=== PATIENT | male | born 1950 | race American Indian/Alaskan Native ===

== ENCOUNTER 2017-03-29 12:31 | Emergency (ER) | payer MEDICARE, OTHER ==
[2017-03-29 12:38] VITALS: TEMP 97.9
--- NOTE | 2017-03-29 13:54 | RAD ---
PROCEDURE: Left Hip X-ray Radiographs. HISTORY: pain s.p injury, bumped table COMPARISON: None. FINDINGS: BONES: Bone alignment and mineralization are normal. No acute fracture. JOINTS: Normal. SOFT TISSUES: Normal. OTHER FINDINGS: None. IMPRESSION: No acute fracture or dislocation.Please note occult fractures cannot be excluded on plain radiographs. If there is a persistent clinical concern, an MRI of the hip may be performed for further evaluation.
--- NOTE | 2017-03-29 14:08 | C.PDOC ---
History Of Present Illness 66 y/o male presents to the ED for evaluation of left hip pain which began around 2 weeks ago. He describes his symptoms as a mild, aching pain. Patient notes he accidentally bumped into a table around 2 weeks ago and the pain gradually developed afterwards. He states the pain is non-radiating and denies extremity numbness/weakness. Time Seen by Provider: 03/29/17 13:11 Chief Complaint (Nursing): Hip Pain History Per: Patient History/Exam Limitations: no limitations Onset/Duration Of Symptoms: Other (around 2 weeks ) Current Symptoms Are (Timing): Still Present Severity: Mild Additional History Per: Patient Past Medical History Reviewed: Historical Data, Nursing Documentation, Vital Signs Vital Signs: Last Vital Signs Temp 97.9 F 03/29/17 12:36 Pulse 61 03/29/17 14:12 Resp 18 03/29/17 14:12 BP 118/69 03/29/17 14:12 Pulse Ox 98 03/29/17 16:33 - Medical History PMH: Benign Prostatic Hyperplasia Denies: Chronic Kidney Disease Surgical History: No Surg Hx Family History: States: Unknown Family Hx - Social History Hx Tobacco Use: No Hx Alcohol Use: No Hx Substance Use: No - Immunization History Hx Tetanus Toxoid Vaccination: No Hx Influenza Vaccination: No Hx Pneumococcal Vaccination: No Review Of Systems Musculoskeletal: Positive for: Other (+left hip pain. non-radiating ) Neurological: Negative for: Weakness, Numbness Physical Exam - Physical Exam Appears: Non-toxic, No Acute Distress Skin: Warm, Dry, No Rash, No Ecchymosis Head: Atraumatic, Normacephalic Eye(s): bilateral: Normal Inspection Oral Mucosa: Moist Neck: Normal ROM, Supple Chest: Symmetrical Extremity: Normal ROM, Tenderness (minimal to left lateral hip, no swelling or ecchymosis), No Calf Tenderness, No Deformity, No Swelling Neurological/Psych: Oriented x3, Normal Speech, Normal Motor, Normal Sensation Gait: Steady ED Course And Treatment O2 Sat by Pulse Oximetry: 98 (on RA) Pulse Ox Interpretation: Normal - Other Rad left hip XR X-Ray: Interpreted by Me, Viewed By Me, Read By Radiologist Interpretation: Accession No. : [id number]. Patient Name / ID : AIRAM BRIAN / [id number]. Exam Date : 03/29/2017 13:27:05 ( Approved ). Study Comment : Sex / Age : M / [id number]. Creator : BRIGETTE GA MD. Dictator : BRIGETTE GA MD. Human Relations Professor : Burn Nurse : BRIGETTE GA MD. Approver2 : Report Date : 03/29/2017 13:52:53. My Comment : . PROCEDURE: Left Hip X-ray Radiographs. HISTORY: pain s.p injury, bumped table. COMPARISON: None. FINDINGS: BONES: Bone alignment and mineralization are normal. No acute fracture. JOINTS: Normal. SOFT TISSUES: Normal. OTHER FINDINGS: None. IMPRESSION: No acute fracture or dislocation.Please note occult fractures cannot be excluded on plain radiographs. If there is a persistent clinical concern, an MRI of the hip may be performed for further evaluation. Medical Decision Making Medical Decision Making: Impression: 66y/o male with left hip pain Plan: * Motrin PO * left hip XR * reassess and disposition Progress: Left hip XR ordered, results are unremarkable. On reassessment, patient is resting comfortably, showing no signs of distress, and reports an improvement in his pain. Patient is stable for discharge and is advised to orthopedic care for further evaluation if pain persists. Disposition Counseled Patient/Family Regarding: Need For Followup - Disposition Referrals: Valeria Dee APN [Advanced Practice Nurse] - Disposition: HOME/ ROUTINE Disposition Time: 14:07 Condition: STABLE Additional Instructions: Your xray was normal, no fracture. Please apply ice to area 15 minutes three times a day. Take Motrin as needed for pain every 6 hours, with food to not upset stomach. Follow up with orthopedic if pain persists over one week. Prescriptions: Ibuprofen [Motrin] 600 mg PO Q8 #30 tab Instructions: Contusion in Adults (DC) - POA Present On Arrival: None - Clinical Impression Clinical Impression: Contusion of hip - PA / [employer] DISPATCHER / Resident Statement MD/DO has reviewed & agrees with the documentation as recorded. - Scribe Statement The provider has reviewed the documentation as recorded by the Scribe (Cary Escalona) All medical record entries made by the Scribe were at my direction and personally dictated by me. I have reviewed the chart and agree that the record accurately reflects my personal performance of the history, physical exam, medical decision making, and the department course for this patient. I have also personally directed, reviewed, and agree with the discharge instructions and disposition.
[2017-03-29 14:13] VITALS: BP 118/69; PULSE 61; RESP 18
[2017-03-29 16:22] VITALS: O2SAT 98
== END 2017-03-29 14:18 | disposition home or self-care (01) ==
LOC: C.ER 12:31
DX: S70.02XA Contusion of left hip, initial encounter (principal); W22.8XXA Striking against or struck by other objects, initial encounter

== ENCOUNTER 2017-06-02 01:08 | Emergency (ER) | payer MEDICARE, OTHER ==
[2017-06-02 01:22] VITALS: BP 123/75; PULSE 53; RESP 16; TEMP 97.7; O2SAT 97
--- NOTE | 2017-06-02 01:38 | C.PDOC ---
History Of Present Illness Pt felt a "bump" at the bottom of their chest tonight and started getting worried about it so he couldn't sleep. Time Seen by Provider: 06/02/17 01:17 Chief Complaint (Nursing): Medical Clearance History Per: Patient Onset/Duration Of Symptoms: Other (tonight) Current Symptoms Are (Timing): Still Present Severity: Mild Location: Xyphoid Additional History Per: Prior Records Past Medical History Reviewed: Historical Data, Nursing Documentation, Vital Signs Vital Signs: Last Vital Signs Temp 97.7 F 06/02/17 01:19 Pulse 53 L 06/02/17 01:19 Resp 16 06/02/17 01:19 BP 123/75 06/02/17 01:19 Pulse Ox 97 06/02/17 01:19 - Medical History PMH: Benign Prostatic Hyperplasia, Diabetes Family History: States: Unknown Family Hx - Social History Hx Tobacco Use: No Hx Alcohol Use: No Hx Substance Use: No - Immunization History Hx Tetanus Toxoid Vaccination: No Hx Influenza Vaccination: No Hx Pneumococcal Vaccination: No Review Of Systems Except As Marked, All Systems Reviewed And Found Negative. Constitutional: Negative for: Fever, Weakness Cardiovascular: Negative for: Chest Pain Respiratory: Negative for: Shortness of Breath Gastrointestinal: Negative for: Vomiting, Abdominal Pain Musculoskeletal: Negative for: Neck Pain, Back Pain, Leg Pain Neurological: Negative for: Weakness, Numbness Physical Exam - Physical Exam Appears: Non-toxic, No Acute Distress Skin: Warm, Dry Head: Atraumatic, Normacephalic Eye(s): bilateral: PERRL, EOMI Neck: Normal ROM, Supple Chest: Symmetrical, No Deformity, No Tenderness, No Ecchymosis, No Subcutaneous Emphysema, Other (The "bump" that the pt is referring to is his xyphoid process. ) Cardiovascular: Rhythm Regular Respiratory: Normal Breath Sounds, No Accessory Muscle Use Gastrointestinal/Abdominal: Soft, No Tenderness Back: No CVA Tenderness Extremity: Normal ROM, No Pedal Edema, No Calf Tenderness Neurological/Psych: Oriented x3, Normal Motor, Normal Sensation ED Course And Treatment O2 Sat by Pulse Oximetry: 97 Pulse Ox Interpretation: Normal Disposition Counseled Patient/Family Regarding: Diagnosis, Need For Followup - Disposition Disposition: HOME/ ROUTINE Disposition Time: 01:39 Condition: STABLE Additional Instructions: Follow up with your doctor. Return to the ER if you develop worsening of symptoms or if you have any other concerns. Instructions: Normal Exam (ED) Forms: [facility] (Uzbek), General Discharge Instructions - Clinical Impression Clinical Impression: Normal exam
== END 2017-06-02 01:51 | disposition home or self-care (01) ==
LOC: C.ER 01:08
DX: Z00.00 Encounter for general adult medical examination without abnormal findings (principal)

== ENCOUNTER 2018-02-16 14:28 | Emergency (ER) | payer MEDICARE, OTHER ==
--- NOTE | 2018-02-16 17:01 | C.PDOC ---
History Of Present Illness Pt c/o right elbow pain. Time Seen by Provider: 02/16/18 16:41 Chief Complaint (Nursing): Upper Extremity Problem/Injury History Per: Patient Onset/Duration Of Symptoms: Days (about 2 months) Current Symptoms Are (Timing): Still Present Quality: "Pain" Severity: Moderate Exacerbating Factor(s): Strenuous Use Of Affected Area Additional History Per: Prior Records Past Medical History Reviewed: Historical Data, Nursing Documentation, Vital Signs Vital Signs: Last Vital Signs Temp 97.5 F L 02/16/18 15:16 Pulse 55 L 02/16/18 15:16 Resp 18 02/16/18 15:16 BP 125/71 02/16/18 15:16 Pulse Ox 100 02/16/18 15:16 - Medical History PMH: Benign Prostatic Hyperplasia, Diabetes Family History: States: Unknown Family Hx - Social History Hx Tobacco Use: No Hx Alcohol Use: No Hx Substance Use: No - Immunization History Hx Tetanus Toxoid Vaccination: No Hx Influenza Vaccination: No Hx Pneumococcal Vaccination: No Review Of Systems Except As Marked, All Systems Reviewed And Found Negative. Constitutional: Negative for: Fever, Weakness Cardiovascular: Negative for: Chest Pain Respiratory: Negative for: Shortness of Breath Gastrointestinal: Negative for: Vomiting, Abdominal Pain Musculoskeletal: Negative for: Neck Pain, Hand Pain Skin: Negative for: Rash Neurological: Negative for: Weakness, Numbness Physical Exam - Physical Exam Appears: Non-toxic, No Acute Distress Skin: Normal Color, Warm, Dry, No Rash Head: Atraumatic, Normacephalic Eye(s): bilateral: Normal Inspection, PERRL, EOMI Neck: Normal ROM, Supple Extremity: Normal ROM, Tenderness (pain is centered around the lateral epicondyle of right elbow.), Capillary Refill (wnl), No Deformity, No Swelling Extremity: Right: Normal Color And Temperature Pulses: Right Radial: Normal Neurological/Psych: Oriented x3, Normal Motor, Normal Sensation ED Course And Treatment O2 Sat by Pulse Oximetry: 100 Pulse Ox Interpretation: Normal Disposition Counseled Patient/Family Regarding: Diagnosis, Need For Followup, Rx Given - Disposition Referrals: Myranda North MD [Staff Provider] - Disposition: HOME/ ROUTINE Disposition Time: 17:02 Condition: STABLE Additional Instructions: Follow up with an library media specialist. Return to the ER if you develop redness , swelling, worsening of symptoms or if you have any other concerns. Prescriptions: Naproxen 375 mg PO BID PRN #20 tablet PRN Reason: Pain, Moderate (4-7) Instructions: Lateral Epicondylitis (DC) - Clinical Impression Clinical Impression: Right lateral epicondylitis
[2018-02-16 17:17] VITALS: BP 119/78; PULSE 58; RESP 16; TEMP 98.1; O2SAT 98
== END 2018-02-16 17:18 | disposition home or self-care (01) ==
LOC: C.ER 14:28
DX: M77.11 Lateral epicondylitis, right elbow (principal); E11.9 Type 2 diabetes mellitus without complications

== ENCOUNTER 2018-02-24 21:10 | Emergency (ER) | payer MEDICARE, OTHER ==
[2018-02-24 21:31] VITALS: O2SAT 99
[2018-02-24] MEDS ORDERED: Iohexol 240 (50 ml) PO ONE (21:37)
--- NOTE | 2018-02-24 21:38 | C.PDOC ---
History Of Present Illness 67 year old male presents to the ER with a complaint of intermittent abdominal pain since yesterday. Denies nausea, vomiting, diarrhea, dysuria, and hematuria. Chief Complaint (Nursing): Abdominal Pain History Per: Patient History/Exam Limitations: no limitations Onset/Duration Of Symptoms: Days, Intermittent Episodes Current Symptoms Are (Timing): Still Present Location Of Pain/Discomfort: LUQ, LLQ Radiation Of Pain To:: None Quality Of Discomfort: Unable To Describe Associated Symptoms: denies: Fever, Chills, Nausea, Vomiting, Diarrhea, Urinary Symptoms Exacerbating Factors: None Alleviating Factors: None Recent travel outside of the [place]: No Past Medical History Reviewed: Historical Data, Nursing Documentation, Vital Signs Vital Signs: Last Vital Signs Temp 97.7 F 02/24/18 21: Pulse 46 L 02/24/18 21:22 Resp 16 02/24/18 21:22 BP 112/70 02/24/18 21: Pulse Ox 99 02/25/18 00:45 - Medical History PMH: Benign Prostatic Hyperplasia, Diabetes Family History: States: Unknown Family Hx - Social History Hx Tobacco Use: No Hx Alcohol Use: No Hx Substance Use: No - Immunization History Hx Tetanus Toxoid Vaccination: No Hx Influenza Vaccination: No Hx Pneumococcal Vaccination: No Review Of Systems Constitutional: Negative for: Fever, Chills Gastrointestinal: Positive for: Abdominal Pain. Negative for: Nausea, Vomiting , Diarrhea Genitourinary: Negative for: Dysuria, Hematuria Physical Exam - Physical Exam Appears: Non-toxic Skin: Normal Color, Warm, Dry Head: Atraumatic, Normacephalic Eye(s): bilateral: Normal Inspection Oral Mucosa: Moist Chest: Symmetrical, No Tenderness Cardiovascular: Rhythm Regular Respiratory: Normal Breath Sounds, No Rales, No Rhonchi, No Wheezing Gastrointestinal/Abdominal: Soft, Tenderness (Left upper/lower quadrants), Distention (Slightly), No Guarding, No Rebound Neurological/Psych: Oriented x3, Normal Speech ED Course And Treatment - Laboratory Results Result Diagrams: 02/24/18 21:43 02/24/18 21:43 O2 Sat by Pulse Oximetry: 99 (Room air) Pulse Ox Interpretation: Normal Progress Note: CT abd/pel, blood work, and urinalysis ordered. Toradol administered. Disposition Counseled Patient/Family Regarding: Diagnosis - Disposition Referrals: [facility] [Outside] Disposition: HOME/ ROUTINE Disposition Time: 00:54 Condition: STABLE Prescriptions: Famotidine [Pepcid] 20 mg PO BID #14 tab Sucralfate [Carafate] 1 gm PO BID #14 tab Instructions: Acute Abdomen (Belly Pain), Gastritis (DC) Forms: [facility] (Occitan) - POA Present On Arrival: None - Clinical Impression Clinical Impression: Abdominal pain, Gastritis - Scribe Statement The provider has reviewed the documentation as recorded by the Scribkristopher Frank All medical record entries made by the Mattibe were at my direction and personally dictated by me. I have reviewed the chart and agree that the record accurately reflects my personal performance of the history, physical exam, medical decision making, and the department course for this patient. I have also personally directed, reviewed, and agree with the discharge instructions and disposition.
[2018-02-24] MEDS ORDERED: Iohexol 240 (50 ml) ONE (21:43)
[2018-02-24 21:53] LABS: BASO % 0.6 % (0.0-2.0); EOS # 0.3 K/uL (0.0-0.7); EOS % 5.9 % (0.0-4.0); HEMOGLOBIN 13.6 g/dL (12.0-18.0); LYMPH # 3.5 K/uL (1.0-4.3); LYMPH % 61.8 % (20.0-40.0); MEAN CELL VOLUME 90.2 fL (80.0-94.0); MEAN CORPUSCULAR HEMOGLOBIN 30.6 pg (27.0-31.0); MEAN CORPUSCULAR HGB CONC 33.9 g/dL (33.0-37.0); MONO # 0.6 K/uL (0.0-0.8); MONO % 10.4 % (0.0-10.0); NEUT # 1.2 K/uL (1.8-7.0); NEUT % 21.3 % (50.0-75.0); NRBC % 0.1 % (0.0-2.0); RBC 4.43 Mil/uL (4.40-5.90); RED CELL DISTRIBUTION WIDTH 14.5 % (11.5-14.5); WHITE BLOOD COUNT 5.7 K/uL (4.8-10.8)
[2018-02-24] MEDS ORDERED: Iodixanol 320 MG/ML 100 ML BOTTLE IV ONE (21:57)
[2018-02-24 22:12] LABS: ALB/GLOB RATIO 1.1 (1.0-2.1); ALBUMIN 3.5 g/dL (3.5-5.0); ALT/SGPT 43 U/L (21-72); AST/SGOT 89 U/L (17-59); BLOOD UREA NITROGEN 17 mg/dL (9-20); GFR AFRICAN-AMERICAN > 60; GFR NON-AFRICAN AMERICAN > 60; LIPASE 91 U/L (23-300)
[2018-02-24 22:35] LABS: URINE BILIRUBIN NEGATIVE (NEGATIVE); URINE BLOOD NEGATIVE (NEGATIVE); URINE CLARITY Clear (Clear); URINE COLOR Yellow (YELLOW); URINE GLUCOSE (UA) NORMAL (Normal); URINE LEUKOCYTE ESTERASE NEG Leu/uL (Negative); URINE PROTEIN NEGATIVE (NEGATIVE); URINE UROBILINOGEN NORMAL mg/dL (0.2-1.0)
--- NOTE | 2018-02-24 23:27 | C.PDOC ---
Chief Complaint (Nursing): Abdominal Pain Past Medical History Vital Signs: Last Vital Signs Temp 97.7 F 02/24/18 21:22 Pulse 46 L 02/24/18 21:22 Resp 16 02/24/18 21:22 BP 112/70 02/24/18 21:22 Pulse Ox 99 02/24/18 21:22 - Medical History PMH: Benign Prostatic Hyperplasia, Diabetes Denies: Chronic Kidney Disease Family History: States: Unknown Family Hx - Social History Hx Tobacco Use: No Hx Alcohol Use: No Hx Substance Use: No - Immunization History Hx Tetanus Toxoid Vaccination: No Hx Influenza Vaccination: No Hx Pneumococcal Vaccination: No ED Course And Treatment O2 Sat by Pulse Oximetry: 99 Disposition - Disposition
--- NOTE | 2018-02-25 00:18 | CT ---
EXAM: CT Abdomen and Pelvis With Intravenous Contrast EXAM DATE/TIME: 02/24/2018 9:36 PM CLINICAL HISTORY: 67 years old, male; Pain; Abdominal pain; Additional info: Left sided abd pain/ tenderness TECHNIQUE: Axial computed tomography images of the abdomen and pelvis with intravenous contrast. All CT scans at this facility use one or more dose reduction techniques, viz.: automated exposure control; ma/kV adjustment per patient size (including targeted exams where dose is matched to indication; i.e. head); or iterative reconstruction technique. Coronal and sagittal reformatted images were created and reviewed. CONTRAST: 100 mL of [id number] administered intravenously. COMPARISON: There are no prior studies for comparison. FINDINGS: Lung bases: Heart size is normal. There is a small hiatal hernia. There is atelectasis and scarring at the lung bases ABDOMEN: Liver: unremarkable Gallbladder and bile ducts: unremarkable Pancreas: unremarkable Spleen: unremarkable Adrenals: unremarkable Kidneys and ureters: unremarkable Stomach and bowel: Stomach is partially distended. Rotation is normal. There is no obstruction.There is fecalization of the distal ileum. Appendix is unremarkable. There is moderate stool in the colon. There is scattered diverticulosis. PELVIS: Appendix: See stomach and bowel Bladder: unremarkable Reproductive: Prostate is mildly enlarged. Seminal vesicles are unremarkable. ABDOMEN and PELVIS: Intraperitoneal space: There is no free air or free fluid. Bones/joints: There are degenerative changes in the osseus structures. Soft tissues: unremarkable Vasculature: There are vascular calcifications. There are bilateral common iliac artery stents Lymph nodes: There is no pathologic adenopathy. IMPRESSION: No acute solid visceral or bowel abnormality; no CT findings of appendicitis or diverticulitis; atherosclerotic disease with bilateral common iliac artery stents Additional nonemergent findings as described above.
[2018-02-25] MEDS ORDERED: Sucralfate 1 gm/10 ml Oral Susp UD PO STA (00:46)
[2018-02-25] MEDS ORDERED: Sucralfate 1 gm/10 ml Oral Susp UD ONE (01:01)
[2018-02-25 01:14] VITALS: BP 133/74; PULSE 59; RESP 18; TEMP 98.5
== END 2018-02-25 01:14 | disposition home or self-care (01) ==
LOC: C.ER 21:10
DX: K29.70 Gastritis, unspecified, without bleeding (principal); R10.12 Left upper quadrant pain
CPT/HCPCS: 74177; 80053; 81001; 83690; 85025; 96374; 99285; J1885; Q9966; Q9967